=== PATIENT | female | born 1965 | race African-American/Black ===

== ENCOUNTER 2020-09-10 10:13 | Emergency (ER) | payer SELFPAY ==
[2020-09-10] MEDS ORDERED: Ibuprofen 200 MG TAB ONE (10:32)
--- NOTE | 2020-09-10 12:08 | RAD ---
CHEST 2 VIEWS: DATE: 09/10/2020. FINDINGS: The heart is normal in size. There is no mediastinal widening or shift. The lungs are fully inflate d and clear. There is no infiltrate, effusion, or pneumothorax. A few calcified granulomas were not ed. The mediastinum appears normal. No gross fractures were identified. One of the inferior end pl ates of the midthoracic vertebrae is upsloping slightly, but this is probably its normal sate. IMPRESSION: No acute thoracic findings. POS: HOME
== END 2020-09-10 11:12 | disposition home or self-care (01) ==
LOC: BURERS 10:13
DX: S20.219A Contusion of unspecified front wall of thorax, initial encounter (principal); E11.9 Type 2 diabetes mellitus without complications; I10 Essential (primary) hypertension; Z79.84 Long term (current) use of oral hypoglycemic drugs; Z79.899 Other long term (current) drug therapy; V89.2XXA Person injured in unspecified motor-vehicle accident, traffic, initial encounter
CPT/HCPCS: 71046; 93005

== ENCOUNTER 2022-10-28 00:13 | Emergency (ER) | payer BC, OTHER ==
[2022-10-28] MEDS ORDERED: Morphine 4 MG/ML VIAL ONE ×2 (01:04→03:19)
[2022-10-28] MEDS ORDERED: Ondansetron PF 4 MG/2 ML Vial ONE (01:04)
[2022-10-28] MEDS ORDERED: Mag-Al Plus 1200 MG/1200 MG/120 MG/30 ML UDCUP ONE (01:08)
[2022-10-28] MEDS ORDERED: Lidocaine Viscous Sol 2% 15 ml UD Cup ONE (01:08)
[2022-10-28 01:13] LABS: Bilirubin Moderate (Negative); Blood, Urine Small (Negative); Clarity Slightly Cloudy (Clear); Glucose, Urine (Dipstick) Negative (Negative); Ketone, Urine Trace mg/dL (Negative); Leukocyte Negative (Negative); Nitrite Negative (Negative); Protein, Urine (Dipstick) 30 mg/dL (Neg-Trace); Urobilinogen 0.2 mg/dL (Less than 2); pH, Urine 5.5 (5.0-9.0)
[2022-10-28 01:19] LABS: #Basophils 0.1 thou/uL (0.0-0.2); #Lymphocytes 1.1 thou/uL (1.20-3.40); #Monocytes 0.4 thou/uL (0.11-0.59); #Neutrophils 6.2 thou/uL (1.40-6.50); %Basophils 1.1 % (0.0-1.0); %Eosinophils 0.1 % (0.0-10.0); %Lymphocytes 14.6 % (21.0-51.0); %Monocytes 4.5 % (0.0-10.0); %Neutrophils 79.7 % (42.0-75.0); Hemoglobin 14.9 g/dL (12.0-16.0); Mean Corpuscular HGB CONC 33.3 g/dL (32.0-36.0); Mean Corpuscular Hemoglobin 31.6 pg (27.0-31.0); Mean Platelet Volume 9.1 fL (7.4-10.4); Platelet Count 227 10x3/uL (130-400); RBC Distribution Width 11.9 % (11.5-14.5); Red Blood Cell (RBC) Count 4.72 mill/uL (4.20-5.40); White Blood Cell (WBC) Count 7.8 10x3/uL (4.8-10.8)
[2022-10-28 01:21] LABS: Specific Gravity, Urine 1.033 (1.002-1.036)
[2022-10-28 01:25] LABS: ALT (SGPT) 23 U/L (8-55); AST (SGOT) 19 U/L (5-34); Albumin 4.4 g/dL (3.5-5.0); Alkaline Phosphatase 82 U/L (40-110); Anion Gap 15 mmol/L (10-20); BUN (Urea Nitrogen) 8 mg/dL (9.8-20.1); Bilirubin, Total 0.8 mg/dL (0.2-1.2); Calc. Creatinine Clearance 0 mL/min (70-130); Calcium 9.7 mg/dL (7.8-10.44); Carbon Dioxide 23 mmol/L (22-29); Chloride 103 mmol/L (98-107); Estimated GFR 78; Globulin 3.7 g/dL (2.4-3.5); Glucose 170 mg/dL (70-105); Lipase 12 U/L (8-78); Potassium 3.9 mmol/L (3.5-5.1); Protein, Total 8.1 g/dL (6.0-8.3); Sodium 137 mmol/L (136-145)
[2022-10-28 02:22] LABS: Bacteria/HPF Rare-Few HPF (None Seen); Squamous Epithelial None Seen HPF (0-3); WBC/HPF 0-3 HPF (0-3)
[2022-10-28 02:23] LABS: Mucous/LPF Rare LPF (<2+)
[2022-10-28] MEDS ORDERED: Iopamidol 370 76% 100 ML VIAL ONE (10:51)
== END 2022-10-28 04:50 | disposition short-term general hospital (02) ==
LOC: BURERS 00:13
DX: K56.609 Unspecified intestinal obstruction, unspecified as to partial versus complete obstruction (principal); E11.9 Type 2 diabetes mellitus without complications; E78.00 Pure hypercholesterolemia, unspecified; I10 Essential (primary) hypertension; Z79.899 Other long term (current) drug therapy; Z79.84 Long term (current) use of oral hypoglycemic drugs; Z79.82 Long term (current) use of aspirin
CPT/HCPCS: 74177; 80053; 81003; 81015; 83605; 83690; 85025; 93005; 96361; 96374; 96375; 96376; J2270; J2405; Q9967